=== PATIENT | female | born 1930 | race Caucasian/White ===

== ENCOUNTER → 2016-10-12 | Outpatient (CLI) | payer MEDICARE, BC ==
[~2016-10-12] MED LIST: ATOR20TA PO; AZEL6DRO2 EACHEYE; DRON400T PO; ESCI5TAB PO; MAGN27TA3 PO; MENT120C MC
--- NOTE | 2016-10-12 13:16 | RAD ---
Complete abdominal ultrasound History: Elevated alkaline phosphatase, lung cancer with history of liver metastases. Comparison: CT chest abdomen pelvis 08/24/2016. Procedure: Transabdominal ultrasound images are obtained. Findings: Visualized pancreas is unremarkable. Liver is normal in echogenicity. No focal soft tissue hepatic masses are identified. Left hepatic lobe demonstrates simple appearing cyst measuring 3.2 cm, seen on previous study. Gallbladder has an unremarkable appearance. Common bile duct measures normally at 3 mm in diameter. Spleen is unremarkable. Splenic length is 9.8 cm. Right kidney is normal in size and configuration without hydronephrosis. Left kidney is normal in size and configuration without hydronephrosis. Interpolar region of left kidney demonstrates 1.4 cm cyst. Visualized portions of the aorta and IVC have normal caliber. Aortic atherosclerosis is seen. Impression: 1. Hepatic cyst. 2. No ultrasound evidence of hepatic soft tissue metastases. 3. No evidence of biliary pathology.
== END | disposition home or self-care (01) ==
LOC: US 12:09
PROVIDERS: ATTEND Internal Medicine Hematology & Oncology
DX: K76.89 Other specified diseases of liver (principal); C34.90 Malignant neoplasm of unspecified part of unspecified bronchus or lung
CPT/HCPCS: 76700

== ENCOUNTER → 2016-12-07 | Outpatient (CLI) | payer MEDICARE, BC ==
[~2016-12-07] MED LIST changes: -ESCI5TAB PO; +ESCITALOPRAM OXA5 MG PO; +IOHEXOL 240 MG/ML 50ML VIAL. ONE; +IOHEXOL 300 MG/ML 75 ML VIAL. IV ONE
--- NOTE | 2016-12-07 12:02 | RAD ---
Indication restage lung malignancy. Contrast imaging through the chest abdomen and pelvis was performed. Both oral and IV contrast were administered. Approximately 75 cc of Omnipaque 300 was administered intravenously. Note is made of a similar series of examinations 08/24/2016. CT chest: Findings. The thoracic aorta appears unremarkable apart from plaquing. Multiple calcified mediastinal lymph nodes are seen appearing similar. There is a dominant nodule in the left lobe of the thyroid measuring approximately 1.6 cm in greatest dimension appearing similar. Known mass in the right upper lobe is unchanged. A new finding in the chest is not seen. CT abdomen and pelvis: Findings. There is diffuse heterogeneity seen involving the liver. This is probably a function of the bolus technique and timing of the images relative to same. A diffuse infiltrative process or diffuse hepatic disease involving the liver is not excluded and clinical correlation as to this possibility advised. A mass in the left lobe of the liver compatible with a cyst is noted appearing similar. There may be mild gallbladder wall thickening or pericholecystic fluid. Again clinical correlation advised. If additional evaluation of the gallbladder is warranted ultrasound could be performed. No significant finding is seen involving the kidneys. A left renal cyst is noted. The adrenal glands appear normal. No pancreatic abnormality is seen. Significant central or retroperitoneal adenopathy is not seen. In the pelvis moderately extensive diverticulosis is noted associated with the sigmoid colon. Active inflammation is not seen and no acute finding in the pelvis is apparent. There are degenerative changes in the lumbar spine. IMPRESSION: No acute finding in the chest. Known parenchymal opacity in the right upper lobe appears stable. The appearance of the liver may be secondary to bolus technique and when the liver images were obtained. Diffuse hepatic disease is not entirely excluded. Clinical correlation as to this possibility advised. If gallbladder pathology is suspect ultrasound could be performed PQRS Compliance Statement: One or more of the following individualized dose reduction techniques were utilized for this examination: 1. Automated exposure control 2. Adjustment of the mA and/or kV according to patient size 3. Use of iterative reconstruction technique
== END | disposition home or self-care (01) ==
LOC: CT 09:32
PROVIDERS: ATTEND Internal Medicine Hematology & Oncology
DX: C34.91 Malignant neoplasm of unspecified part of right bronchus or lung (principal); R74.0 Nonspecific elevation of levels of transaminase and lactic acid dehydrogenase [LDH]
CPT/HCPCS: 71260; 74177; Q9966; Q9967

== ENCOUNTER → 2017-01-10 | Outpatient (CLI) | payer MEDICARE, BC ==
[~2017-01-10] MED LIST changes: -IOHEXOL 240 MG/ML 50ML VIAL. ONE; -IOHEXOL 300 MG/ML 75 ML VIAL. IV ONE
--- NOTE | 2017-01-10 18:07 | RAD ---
CT of the lumbar spine without contrast, 01/10/2017: History: Injury, pain Noncontrast scans were obtained with multiplanar reconstructions produced. There is a fracture involving the superior aspect of the L1 vertebral body. This is new when compared to CT images from 12/07/2016. There is mild retropulsion of the posterior superior corner of that vertebral body into the anterior aspect of the spinal canal. The thecal sac at the T12-L1 level is not significantly stenotic measuring 11-12 mm in AP dimension at the midline. No other fracture is identified. No destructive bony lesion is seen. There is a mild left convexity lumbar scoliosis. There is disc space narrowing and vacuum disc phenomena with moderate marginal spurring throughout the majority of the lumbar spine. At L1-2 there is no significant posterior disc protrusion. The central spinal canal and neural foramina are well maintained. At L2-3 there is a slight reverse spondylolisthesis related to facet joint arthropathy. There is mild broad-based posterior disc bulging. The central canal is not significantly stenotic. At L3-4 there are more extensive hypertrophic degenerative changes involving the facet joints with moderate posterior ligamentous thickening. There is a slight reverse spondylolisthesis at that level. There is mild broad-based posterior disc protrusion. The combination of findings is causing mild central spinal stenosis in a triangular configuration. At L4-5 there are also extensive degenerative changes involving the facet joints with posterior ligamentous thickening. There is moderate posterior disc protrusion, most prominent on the left. The combination of findings is causing moderate central spinal stenosis and moderate left foraminal encroachment. At L5-S1 the disc space appears partially fused. There is mild posterior disc bulging. The central spinal canal is well-preserved. IMPRESSION: 1. New recent superior endplate fracture at L 2. Moderately severe multilevel degenerative changes as described above, with moderate associated central spinal stenosis at L4-5 and to a lesser degree at L3-4. PQRS Compliance Statement: One or more of the following individualized dose reduction techniques were utilized for this examination: 1. Automated exposure control 2. Adjustment of the mA and/or kV according to patient size 3. Use of iterative reconstruction technique
== END | disposition home or self-care (01) ==
LOC: CT 12:51
PROVIDERS: ATTEND Family Medicine
DX: C34.11 Malignant neoplasm of upper lobe, right bronchus or lung (principal); M54.5 Low back pain; M47.896 Other spondylosis, lumbar region
CPT/HCPCS: 72131

== ENCOUNTER → 2017-01-23 | Outpatient (CLI) | payer MEDICARE, BC ==
[2017-01-23 14:21] LABS: DIRECT BILIRUBIN 0.3 mg/dL (0.0-0.2); TOTAL BILIRUBIN 0.5 mg/dL (0.2-1.0); TOTAL PROTEIN 6.5 g/dL (6.4-8.2)
== END | disposition home or self-care (01) ==
LOC: LAB 13:35
PROVIDERS: ATTEND Internal Medicine Hematology & Oncology
DX: R74.0 Nonspecific elevation of levels of transaminase and lactic acid dehydrogenase [LDH] (principal)
CPT/HCPCS: 36415; 80076

== ENCOUNTER 2017-03-06 08:20 | Inpatient (IN) | payer MEDICARE, BC ==
[~2017-03-06] VITALS: Ht 162.6 cm; Wt 43.2 kg
[2017-03-06 08:25] VITALS: BP 149/63
[2017-03-06 08:47] VITALS: BP 149/63
[2017-03-06] MEDS ORDERED: HYDROcodone/APAP 5/325MG 1 TAB TABLET PO PRN ×2 (09:15→12:45)
[2017-03-06] MEDS ORDERED: ONDANSETRON PF 4 MG/2 ML VIAL. IV PRN (09:15)
[2017-03-06] MEDS ORDERED: MULT-697 PO (09:35)
[2017-03-06] MEDS ORDERED: HYDR-2758 PO (09:35)
[2017-03-06] MEDS ORDERED: DOCU-109 PO (09:35)
[2017-03-06] MEDS ORDERED: METO50TA29 PO (09:35)
[2017-03-06] MEDS ORDERED: RIVA15TA PO (09:35)
[2017-03-06] MEDS ORDERED: ACET325T9 PO (09:35)
[2017-03-06] MEDS ORDERED: LEXAPRO10 MG PO (09:35)
[2017-03-06] MEDS ORDERED: DIPH25CA58 PO (09:35)
[2017-03-06] MEDS: MORPHINE SULFATE 2 MG/ML DISP.SYRIN. IV PRN ×4 (09:56→23:26)
[2017-03-06 10:01] LABS: ALBUMIN 2.8 g/dL (3.4-5.0); ALBUMIN/GLOBULIN RATIO 0.8 (1.0-1.7); CALCIUM 9.1 mg/dL (8.5-10.1); CREATININE 0.6 mg/dL (0.6-1.0); DIRECT BILIRUBIN 0.5 mg/dL (0.0-0.2); GFR 94.8; MAGNESIUM 1.6 mg/dL (1.8-2.4); TOTAL BILIRUBIN 0.9 mg/dL (0.2-1.0); TOTAL PROTEIN 6.2 g/dL (6.4-8.2)
[2017-03-06 10:11] LABS: BASO % 1 % (0-3); EOS # 0.2 x10^3/uL (0.0-0.7); EOS % 3 % (0-3); HEMATOCRIT 38.9 % (36.0-47.0); HEMOGLOBIN 13.3 g/dL (12.0-15.5); LYMPH # 0.5 x10^3/uL (1.0-4.8); LYMPH % 8 % (24-48); MEAN CORPUSCULAR HEMOGLOBIN 31 pg (25-35); MEAN CORPUSCULAR HGB CONC 34 g/dL (31-37); MEAN CORPUSCULAR VOLUME 90 fL (79-100); MONO # 0.8 x10^3/uL (0.0-1.1); MONO % 11 % (0-9); NEUT # 5.3 x10^3uL (1.8-7.7); NEUT % 78 % (31-73); PLATELET COUNT 278 x10^3/uL (140-400); RED BLOOD COUNT 4.32 x10^6/uL (3.50-5.40); RED CELL DISTRIBUTION WIDTH 16.9 % (11.5-14.5); WHITE BLOOD COUNT 6.8 x10^3/uL (4.0-11.0)
[2017-03-06] MEDS ORDERED: IOHEXOL 300 MG/ML 75 ML VIAL. IV ONE (10:30)
[2017-03-06 10:48] LABS: BACTERIA,URINE 0 /HPF (0-FEW); BILIRUBIN,URINE MOD (NEG); CLARITY,URINE CLOUDY; COLOR,URINE BROWN; GLUCOSE,URINE NEG (NEG); NITRITE,URINE NEG (NEG); RBC,URINE RARE /HPF (0-2); SQUAMOUS EPITHELIAL CELL,UR FEW /LPF; UROBILINOGEN,URINE 1 mg/dL (0.2 mg/dL); WBC,URINE RARE /HPF (0-4)
[2017-03-06 10:49] LABS: AMORPHOUS SEDIMENT,UR PRESENT /HPF
[2017-03-06 11:01] VITALS: BP 130/67
--- NOTE | 2017-03-06 11:56 | RAD ---
Indication lung malignancy. Elevated d-dimer. Axial images of the chest were obtained. The examination was tailored for the detection of pulmonary emboli. MIP images were generated and reviewed. Approximately 75 cc of Isovue-300 was administered intravenously. Note is made of a prior examination of the chest 12/07/2016. The study is negative for pulmonary embolus. The thoracic aorta is unremarkable. Significant hilar or mediastinal adenopathy is not seen. Known parenchymal mass in the right upper lobe appears unchanged. An acute or new finding in the chest is not seen. Imaging through the upper abdomen appears unremarkable IMPRESSION: No acute finding in the chest. Negative study for pulmonary embolus. Known parenchymal opacity in the right upper lobe appears similar. PQRS Compliance Statement: One or more of the following individualized dose reduction techniques were utilized for this examination: 1. Automated exposure control 2. Adjustment of the mA and/or kV according to patient size 3. Use of iterative reconstruction technique
--- NOTE | 2017-03-06 12:07 | RAD ---
Indication back pain. Axial images through the lumbar spine were obtained. Images were reformatted in the coronal and sagittal planes. Kyphoplasty changes are noted at L1. There is some disc space narrowing at L5-S1. There are some degenerative changes predominantly at L2-3. Facet degenerative changes are noted at multiple levels. An acute finding is not seen. Definite evidence of lytic or blastic disease is not seen. No significant finding is seen in the visualized soft tissues of the abdomen or pelvis. A left renal cyst is noted. There is some disc bulging at L2-3 and ligamentum flavum hypertrophy. The canal is minimally narrowed at this level. Similar findings are seen at L3-4 again with mild canal narrowing. At L4-5 there is more pronounced disc bulging and ligamentum flavum hypertrophy and at this level there is moderately severe spinal stenosis. Some bony left neural foraminal encroachment at L4-5 is additionally noted. L5-S1 appears unremarkable. IMPRESSION: Spondylitic changes. Canal narrowing at several levels greatest at L4-5. No acute finding seen. PQRS Compliance Statement: One or more of the following individualized dose reduction techniques were utilized for this examination: 1. Automated exposure control 2. Adjustment of the mA and/or kV according to patient size 3. Use of iterative reconstruction technique
[2017-03-06] MEDS ORDERED: diphenhydrAMINE HCL 25 MG CAPSULE PO PRN (12:45)
[2017-03-06] MEDS ORDERED: IV NORMAL SALINE 1,000ML 1,000 ML IV SCH (12:45)
[2017-03-06] MEDS ORDERED: ACETAMINOPHEN 325 MG TABLET PO PRN (12:45)
[2017-03-06] MEDS ORDERED: DRONEDARONE HCL 400 MG TABLET PO SCH ×2 (13:00→21:00)
[2017-03-06] MEDS ORDERED: ESCITALOPRAM OXALATE 5 MG PO SCH (13:00)
[2017-03-06] MEDS ORDERED: KETOTIFEN FUMARATE 0.025% OPHT SOLUTION BOTTLE. OU SCH (13:15)
[2017-03-06] MEDS: HYDROcodone/APAP 5/325MG 1 TAB TABLET PO PRN ×3 (14:42→23:26)
[2017-03-06] MEDS: ATORVASTATIN CALCIUM 20 MG TABLET PO SCH (14:42)
[2017-03-06] MEDS: MULTIVITAMIN with MINERAL TABLET. PO SCH (14:43)
[2017-03-06] MEDS: DOCUSATE SODIUM 100 MG CAPSULE PO SCH (14:43)
[2017-03-06] MEDS: METOPROLOL SUCC 24HR ER 50 MG TAB.ER.24H. PO SCH (14:43)
[2017-03-06] MEDS: IV NORMAL SALINE 1,000ML 1,000 ML IV SCH (14:44)
[2017-03-06] MEDS: ESCITALOPRAM 20 MG TABLET. PO SCH (14:54)
[2017-03-06 15:20] VITALS: BP 115/61
--- NOTE | 2017-03-06 16:35 | HP ---
ADMIT DATE: 03/06/2017 HISTORY OF PRESENT ILLNESS: The patient is an 86-year-old female with history of lung cancer, came in with severe pain in her back and unable to move out of her bed. The patient was admitted for observation to further evaluate the severity of her pain, which she described as 10/10. The patient in turn was also noted to have elevated D-dimer. Her urine was also brown and cloudy. As a result of this, the patient was admitted for observation for further evaluation and treatment. There are positive D-dimer and severe lower back pain with possible metastatic disease to the lower back area. PAST MEDICAL HISTORY: Includes that of lung cancer, cataracts, CVA, congestive heart failure, pacemaker placement, hypertension, chemotherapy, gastrointestinal surgery, appendectomy, GERD. She has had breast duct removed, hysterectomy, spinal fracture with vertebroplasty and her chemotherapy was stopped because of elevated liver enzymes. ALLERGIES: PENICILLIN, KEFLEX, PRILOSEC, AND PROPOXYPHENE. MEDICATIONS: Tylenol, Lipitor 20, Zyrtec eyedrops, Benadryl q. 6 h. p.r.n., Colace 100 mg daily, Multaq 400 mg for AFib, Lexapro 5 mg a day with 10 mg a day, hydrocodone p.r.n., menthol metoprolol succinate 50 mg daily, multivitamin, Xarelto 15 mg at bedtime. FAMILY HISTORY: Noncontributory. SOCIAL HISTORY: Denies smoking, alcohol, or drug use. Lives around secondhand smoke. REVIEW OF SYSTEMS: The patient notes severe pain in the lower back, difficulty in breathing, and difficulty in moving. Denies chest pain per se, headaches, visual changes, blurred vision, double vision. Denies any melena, hematochezia, hematemesis, and neurologically intact. PHYSICAL EXAMINATION: GENERAL: This is a pleasant white female in moderate amount of pain. VITAL SIGNS: The patient's blood pressure 150/60, respiratory rate 18, pulse 90, afebrile. HEENT: The patient's head was atraumatic, normocephalic. Eyes: PERRLA without jaundice. Mouth and throat were normal. NECK: Supple, without JVD or thyromegaly. LUNGS: Diminished throughout, poor movement of air. CARDIOVASCULAR: Regular sinus rhythm. ABDOMEN: Soft, nontender. No rebound or guarding. Positive bowel sounds. No hepatosplenomegaly was noted. EXTREMITIES: No clubbing, cyanosis, or edema. NEUROLOGIC: The patient was alert and oriented x 3, in pain 8-9/10. EXTREMITIES: No clubbing, cyanosis, or edema. IMPRESSION: Lung cancer with intractable pain, severe lower back pain, history of compression fractures, postchemotherapy elevated liver enzymes. The patient will be monitored carefully. We will make further evaluation on her as indicated and we will continue to make further assessment on her. DEBBI OCHOA MD DR: BERNARD/rehana JOB#: [id number] / [id number]
[2017-03-06 19:00] VITALS: BP 117/65
[2017-03-06] MEDS ORDERED: RIVAROXABAN 15 MG TABLET. PO SCH (21:00)
[2017-03-06] MEDS ORDERED: AZELASTINE HCL EACHEYE SCH (21:00)
[2017-03-06 23:00] VITALS: BP 121/71
[2017-03-07] MEDS: MORPHINE SULFATE 2 MG/ML DISP.SYRIN. IV PRN ×3 (04:08→13:39)
[2017-03-07] MEDS: HYDROcodone/APAP 5/325MG 1 TAB TABLET PO PRN ×3 (04:08→13:38)
[2017-03-07] MEDS: IV NORMAL SALINE 1,000ML 1,000 ML IV SCH (04:30)
[2017-03-07 05:00] VITALS: BP 134/71
[2017-03-07] MEDS ORDERED: DOCUSATE SODIUM 100 MG CAPSULE PO SCH (09:00)
[2017-03-07] MEDS ORDERED: MULTIVITAMIN with MINERAL TABLET. PO SCH (09:00)
[2017-03-07] MEDS ORDERED: METOPROLOL SUCC 24HR ER 50 MG TAB.ER.24H. PO SCH (09:00)
[2017-03-07] MEDS ORDERED: ESCITALOPRAM OXALATE PO SCH (09:00)
[2017-03-07] MEDS ORDERED: ATORVASTATIN CALCIUM 20 MG TABLET PO SCH (09:00)
[2017-03-07] MEDS ORDERED: ESCITALOPRAM OXALATE 5 MG PO SCH (09:00)
[2017-03-07] MEDS: ATORVASTATIN CALCIUM 20 MG TABLET PO SCH (09:09)
[2017-03-07] MEDS: DOCUSATE SODIUM 100 MG CAPSULE PO SCH (09:10)
[2017-03-07] MEDS: METOPROLOL SUCC 24HR ER 50 MG TAB.ER.24H. PO SCH (09:10)
[2017-03-07] MEDS: MULTIVITAMIN with MINERAL TABLET. PO SCH (09:10)
[2017-03-07] MEDS: ESCITALOPRAM 20 MG TABLET. PO SCH (09:10)
--- NOTE | 2017-03-07 10:26 | RAD ---
Abdominal ultrasound, 03/07/2017: History: Abdominal pain, elevated liver enzymes The gallbladder is mildly distended. It contains echogenic material without definite posterior acoustic shadowing. The appearance is that of biliary sludge. The gallbladder wall is mildly thickened measuring 3 to 4 mm. The common hepatic duct measures approximately 5 mm. The mid and distal common bile duct measures 9-10 mm which is at the upper limits of normal. No calculus is seen within the common duct. A 2.6 cm cyst is noted in the left lobe of the liver. The liver is otherwise unremarkable. No pancreatic mass is evident. The spleen is of normal size. There is a 2.8 cm septated cyst or cyst cluster in the left parapelvic region. The kidneys are otherwise unremarkable. There is moderate aortic atherosclerotic plaquing without evidence of aneurysm. The inferior vena cava is unremarkable. No free fluid is evident in the abdomen. IMPRESSION: 1. Mildly distended gallbladder containing sludge. 2. Mild gallbladder wall thickening which can be due to a variety of causes including liver disease, kidney disease, hypoproteinemia or cholecystitis. 3. The common bile duct is at the upper limits of normal. 4. Small hepatic and left renal cysts.
[2017-03-07 11:19] VITALS: BP 131/71
[2017-03-07] MEDS ORDERED: ONDANSETRON PF 4 MG/2 ML VIAL. IV PRN (14:30)
--- NOTE | 2017-03-07 21:09 | DS ---
DATE OF DISCHARGE: 03/07/2017 HOSPITAL COURSE: This is a very pleasant 86-year-old female with a history of lung cancer who came in with severe pain. The patient also was noted to have a D-dimer. The patient had severe lower back pain, possible metastatic disease to the lower back. Apparently, she could not get out of bed, she was in such excruciating pain she was unable to move. As a result, she came into the hospital, was admitted for further evaluation. She has had a history of compression fractures in the past. The patient in turn had a positive D-dimer. Her CTA was negative. She had a problem, but with physical and occupational therapy made good progress. The patient's cardiac enzymes were negative. The patient's magnesium was a little bit low at 1.6. BNP came down to 799. Little bit low on her albumin. In any case, the patient made good progress. She did have an abdominal ultrasound that was pretty much apparently preliminary and shows negative for cholecystitis. IMPRESSION: Intractable pain, history of lung cancer with possible mets, history of compression fractures. The patient will be admitted. She was admitted and placed on physical and occupational therapy, pain management, made good progress during the rest of her hospitalization, and was discharged home. Intractable pain, lung cancer, [id number] protein malnutrition, low magnesium, elevated D-dimer, failure to thrive, weight loss. The patient will be discharged home on a regular diet, decreased activity, and followup with her oncologist. DEBBI OCHOA MD DR: BERNARD/rehana JOB#: [id number] / [id number]
== END 2017-03-07 13:55 | disposition home health service (06) | DRG 948 ==
LOC: 1 SOUTH 08:20
PROVIDERS: ADMIT Family Medicine; ATTEND Family Medicine
DX: G89.3 Neoplasm related pain (acute) (chronic) (principal); E44.0 Moderate protein-calorie malnutrition; C34.90 Malignant neoplasm of unspecified part of unspecified bronchus or lung; Z68.1 Body mass index [BMI] 19.9 or less, adult; I11.0 Hypertensive heart disease with heart failure; I50.9 Heart failure, unspecified; K21.9 Gastro-esophageal reflux disease without esophagitis; R62.7 Adult failure to thrive; H26.9 Unspecified cataract; R74.8 Abnormal levels of other serum enzymes; Z86.73 Personal history of transient ischemic attack (TIA), and cerebral infarction without residual deficits; Z95.0 Presence of cardiac pacemaker; Z87.81 Personal history of (healed) traumatic fracture; Z88.8 Allergy status to other drugs, medicaments and biological substances; Z88.0 Allergy status to penicillin; Z90.710 Acquired absence of both cervix and uterus; Z92.21 Personal history of antineoplastic chemotherapy
CPT/HCPCS: 36415; 71275; 72131; 76700; 80053; 81001; 82248; 83735; 83880; 85025; 85379; 87086; J2270; J2405; Q9967; J7030

== ENCOUNTER → 2017-03-16 | Outpatient (CLI) | payer MEDICARE, BC ==
[2017-03-07 11:19] VITALS: BP 131/71
[~2017-03-16] MED LIST changes: +ACET325T9 PO; +DIPH25CA58 PO; +DOCU-109 PO; +HYDR-2758 PO; +IOHEXOL 240 MG/ML 50ML VIAL. ONE; +LEXAPRO10 MG PO; +METO50TA29 PO; +MULT-697 PO; +RIVA15TA PO
--- NOTE | 2017-03-16 12:32 | RAD ---
EXAM: CT abdomen/pelvis without contrast. HISTORY: Elevated liver enzymes, lung cancer. TECHNIQUE: Computed tomography of the abdomen and pelvis was performed without intravenous contrast. COMPARISON: 12/07/2016. FINDINGS: Lung windows through the visualized portions of the bases reveal mild atelectasis. The heart is not enlarged. There are small bilateral pleural effusions. Bone windows reveal no suspicious lesions. There are moderate compression deformities at T11-L1. There are vertebroplasty changes at L1. At T11 and T12, there are residual open fracture lines. There is moderate retropulsion of the posterior superior endplates at T12 and L1 with only mild stenosis. There is mild grade 1 anterolisthesis at L4-5. Pacemaker leads are partially visualized. A cyst in the left hepatic lobe measures 2.8 x 1.4 cm and has decreased in size. There are a few small hypoattenuating foci in the right hepatic lobe measure 9 mm or less. Previously noted heterogeneity of the parenchyma is no longer seen without contrast. There is diffuse gallbladder wall thickening. There also appears to be wall thickening along the common duct. It is mildly dilated at 9 mm. There is no clear distal obstructing lesion. The pancreas is atrophic without clear focal lesions. There are calcified granulomas in the spleen. A cyst in the left kidney measures 2.2 cm. The right kidney is unremarkable without contrast. The adrenal glands are unremarkable. Note is made of a retroaortic left renal vein. There are no pathologically enlarged lymph nodes. There are changes of pelvic floor relaxation. Sigmoid diverticulosis is moderate. There is some wall thickening of the distal rectum. There is a small amount of free pelvic fluid. There is wall thickening along the right colon. This may be luminal redundancy but this is unclear. Contrast has not reached the right colon. IMPRESSION: 1. Gallbladder wall thickening may reflect liver disease, systemic edema or cholecystitis. Correlate for acute infection and localizing pain. 2. Wall thickening of the common duct. Correlate for cholangitis. 3. Small regions of hypoattenuation within the right hepatic lobe are indeterminate without contrast. Postcontrast study is more sensitive for metastatic disease if there is persistent concern. 4. Possible wall thickening of the right colon and rectum. Correlate for colitis and with recent colonoscopic results. 5. Pelvic floor relaxation. 6. Small bilateral pleural effusions. Mild cardiomegaly. *One or more of the following individualized dose reduction techniques were utilized for this examination: 1. Automated exposure control. 2. Adjustment of the mA and/or kV according to patient size. 3. Use of iterative reconstruction technique.
== END | disposition home or self-care (01) ==
LOC: CT 11:04
PROVIDERS: ATTEND Family Medicine
DX: N28.1 Cyst of kidney, acquired (principal); K57.30 Diverticulosis of large intestine without perforation or abscess without bleeding; J98.11 Atelectasis; J90 Pleural effusion, not elsewhere classified; K76.89 Other specified diseases of liver; I51.7 Cardiomegaly; Z95.0 Presence of cardiac pacemaker
CPT/HCPCS: 74176; Q9966

== ENCOUNTER → 2017-03-31 | Outpatient (CLI) | payer MEDICARE, BC ==
[2017-03-07 11:19] VITALS: BP 131/71
[~2017-03-31] MED LIST changes: -IOHEXOL 240 MG/ML 50ML VIAL. ONE
--- NOTE | 2017-03-31 12:25 | RAD ---
Abdominal ultrasound, 03/31/2017: History: Cholangitis The gallbladder is at the upper limits of normal in size. It contains echogenic material without posterior acoustic shadowing. The appearance that of biliary sludge. There is mild to moderate diffuse gallbladder wall thickening. The common hepatic duct demonstrates mild mural thickening. This is better delineated than on the 03/07/2017 study due to technical factors. At the ani hepatis level its outside diameter is approximately 9 mm while it is internal lumen is 3-4 mm. A similar appearance was present on the CT study of 03/06/2017. No intrahepatic bile ductal dilatation is seen. A 2.6 cm simple cyst is noted superiorly in the left lobe. No other hepatic mass is seen. Portions of the pancreatic body are visualized and are unremarkable. Other portions of the pancreas were obscured by overlying bowel. The spleen is of normal size. A 2.6 cm cyst is noted in the left kidney. The kidneys are otherwise unremarkable. There is aortic atherosclerosis without evidence of aneurysm. The inferior vena cava is unremarkable. IMPRESSION: 1. Gallbladder sludge without evidence of cholelithiasis. 2. Mild to moderate diffuse gallbladder wall thickening, also noted on the 03/07/2017 exam. This can be due to a variety of causes including liver disease, kidney disease, hypoproteinemia or calyceal cystitis. 3. Ongoing mural thickening of the common hepatic duct without evidence of ductal dilatation. Findings suggest nonspecific cholangitis. 4. Hepatic and renal cysts.
== END | disposition home or self-care (01) ==
LOC: US 09:48
PROVIDERS: ATTEND Family Medicine
DX: K83.0 Cholangitis (principal); N28.1 Cyst of kidney, acquired; I70.0 Atherosclerosis of aorta; K82.8 Other specified diseases of gallbladder; K76.89 Other specified diseases of liver
CPT/HCPCS: 76700

== ENCOUNTER → 2018-02-01 | Outpatient (CLI) | payer MEDICARE, BC ==
[~2018-02-01] MED LIST changes: +IOHEXOL 240 MG/ML 50ML VIAL. ONE; +IOHEXOL 300 MG/ML 75 ML VIAL. IV ONE
--- NOTE | 2018-02-01 11:54 | RAD ---
CLINICAL HISTORY: Generalized abdominal pain, Appdx removed, Hysterectomy, Metastatic lung CA COMPARISON: CT angiogram 03/06/2017 TECHNIQUE: 5 mm images were taken through the abdomen and pelvis following the administration of oral and nonionic intravenous contrast material. Coronal and sagittal reformatted images were generated. FINDINGS: Lung bases are clear. Heart is mildly enlarged. Abdomen: Left and right hepatic lobe hypodense lesions are seen. The left hepatic lobe lesion measures 1.5 cm and measures soft tissue density on the prior exam 12/07/2016 measure fluid density. This may represent complex or hemorrhagic/proteinaceous cyst. A 1.5 cm right hepatic lobe lesion was not seen on prior CT 12/07/2016 and measures soft tissue density. Additional subcapsular hepatic lobe lesion is also new. Gallbladder wall thickening has decreased compared to prior CT 03/08/2017. Pancreas is atrophic although otherwise unremarkable. Spleen is unremarkable. Adrenal glands are normal. Symmetric nephrograms. There are minimal cortical thinning of the left kidney and right lower pole renal cortical scarring. Heterogeneous perfusion of the inferior pole the left kidney also possibly from prior scarring although focal infection have similar appearance. Left interpolar cystic lesion is stable. No hydronephrosis. Retroaortic left renal vein. Atherosclerotic calcifications of the aorta are seen. Mildly prominent mesenteric lymph nodes are seen, not enlarged by size criteria. Several prominent retroperitoneal lymph nodes are seen including a 1.1 x 0.7 cm left periaortic lymph node. There is diffuse dilation of the small bowel to the level of the right lower quadrant at the site of a heterogeneous, lobulated mass measuring 3.8 x 3.4 cm (series 2 image 57). There is marked wall thickening of the associated small bowel with luminal obstruction at this level. It is uncertain if this is an extrinsic mass abutting a small bowel or a small bowel mass with significant soft tissue component. Colonic diverticulosis without evidence of acute diverticulitis. Small volume pelvic ascites. Fat-containing lesion along the right flank, possibly intramuscular lipoma. Multilevel degenerative changes of the spine are seen. Height loss of T11, T12 and L1 is seen. Diffuse decreased bone mineral density is seen IMPRESSION: 1. There is a small bowel obstruction to the level of a soft tissue mass in the right lower quadrant. This mass may be intrinsic to the small bowel or extrinsic causing associated compression. Given history of known lung cancer, findings may represent metastatic focus although primary neoplasm such as GIST, lymphoma or carcinoid may have similar appearance. 2. Prominent mesenteric and retroperitoneal lymph nodes are seen, not enlarged by size criteria. 3. Mild abdominal pelvic ascites. 4. The degree of gallbladder wall thickening has decreased. Electronically signed by: Maicol Kapadia MD (02/01/2018 11:50 AM) [facility]
== END | disposition home or self-care (01) ==
LOC: CT 08:21
PROVIDERS: ATTEND Family Medicine
DX: K56.699 Other intestinal obstruction unspecified as to partial versus complete obstruction (principal); R18.8 Other ascites; I70.0 Atherosclerosis of aorta; I11.0 Hypertensive heart disease with heart failure; K21.9 Gastro-esophageal reflux disease without esophagitis; Z88.0 Allergy status to penicillin; Z88.1 Allergy status to other antibiotic agents; Z88.2 Allergy status to sulfonamides; Z88.5 Allergy status to narcotic agent
CPT/HCPCS: 74177; Q9966; Q9967